=== PATIENT | female | born 1980 | race Hispanic/Latino ===

== ENCOUNTER → 2020-05-04 | Outpatient (CLI) | payer BC | END | disposition home or self-care (01) | LOC: RAH 13:17 | PROVIDERS: ATTEND Family Medicine | DX: Z12.31 Encounter for screening mammogram for malignant neoplasm of breast (principal) | CPT/HCPCS: 77067 ==

== ENCOUNTER → 2022-06-22 | Outpatient (CLI) | payer BC | END | disposition home or self-care (01) | LOC: RAH 14:14 | PROVIDERS: ATTEND Family Medicine | DX: Z12.31 Encounter for screening mammogram for malignant neoplasm of breast (principal) | CPT/HCPCS: 77067 ==

== ENCOUNTER → 2023-06-24 | Outpatient (CLI) | payer BC | END | disposition home or self-care (01) | LOC: RAH 11:23 | PROVIDERS: ATTEND Family Medicine | DX: Z12.31 Encounter for screening mammogram for malignant neoplasm of breast (principal) | CPT/HCPCS: 77067 ==

== ENCOUNTER → 2023-11-19 | Outpatient (CLI) | payer BC ==
[2023-11-19 22:25] VITALS: PULSE 74; RESP 12
[2023-11-19 22:38] VITALS: PULSE 65; RESP 12
[2023-11-19 23:00] VITALS: PULSE 69; RESP 12
[2023-11-19 23:30] VITALS: PULSE 74; RESP 10
[2023-11-20] VITALS (12 sets, daily range): PULSE 61–80; RESP 12–16
== END | disposition home or self-care (01) ==
LOC: SLP 20:45
PROVIDERS: ATTEND Family Medicine
DX: G47.33 Obstructive sleep apnea (adult) (pediatric) (principal)
CPT/HCPCS: 95810